=== PATIENT | female | born 1970 | race Caucasian/White ===

== ENCOUNTER 2019-05-22 15:01 | Inpatient (IN) | payer BC ==
[2019-05-15 12:05] LABS: Basophils # (auto) 0.1 uL; Basophils % (auto) 0.6 % (0.0-2.0); Eosinophils # (auto) 0.1 uL; Eosinophils % (auto) 1.4 % (0.0-7.0); Hematocrit 45.6 % (36.0-46.0); Hemoglobin 15.4 g/dL (12.2-16.2); Lymphocytes % (auto) 19.9 % (10.0-50.0); Mean Corpuscular Hemoglobin 32.2 pg (28.0-32.0); Mean Corpuscular Hgb Conc. 33.8 g/dL (32.0-36.0); Mean Corpuscular Volume 95.3 fL (80.0-100.0); Monocytes # (auto) 0.3 uL; Monocytes % (auto) 3.2 % (0.0-12.0); Neutrophils # (auto) 7.4 uL; Neutrophils % (auto) 74.9 % (37.0-80.0); Nucleated Red Blood Cells % 0.1 %; Platelet Count (auto) 292 10^3/uL (140-450); Red Blood Cells 4.78 10^6/uL (4.0-5.20); Red Cell Distribution Width 14.6 % (11.8-14.3); Urine Bacteria NONE SEEN /hpf (None Seen); Urine Blood Negative /uL (Negative); Urine Mucus FEW (None Seen); Urine WBC 2 /hpf (0 - 5); White Blood Cell 9.9 10^3/uL (4.4-10.8)
[2019-05-15 12:13] LABS: INR 0.94 (0.9-1.15); Partial Thromboplastin Time 26.3 sec (23.64-32.05)
[2019-05-15 12:15] LABS: Albumin 3.9 g/dL (3.4-5.0); Calcium 9.1 mg/dL (8.5-10.1); Potassium 3.5 mmol/L (3.5-5.1)
[2019-05-15 12:18] LABS: BUN/Creatinine Ratio 18.7; Bilirubin, Total 0.5 mg/dL (0.2-1.0); Total Protein 7.7 g/dL (6.4-8.2)
[~2019-05-22] VITALS: Ht 165.1 cm; Wt 98.4 kg
[2019-05-22] MEDS: SODIUM CHLORIDE 0.9% 1,000 ML IV SCH ×2 (14:53→23:52)
[~2019-05-22 15:01] MED LIST: ACETAMINOPHEN 500 MG TAB PO PRN; ALBUAER3 IN; CHOL200021 PO; CYAN1TAB14 PO; ESTR0.1C VA; HYDR25TA4 PO; LISI-646 PO; MULT1CHW PO; ONDANSETRON HCL 4 MG/2 ML VIAL IV PRN; PRAV20TA3 PO; ceFAZolin 1GM/50ML 50 ML IV ONE
[2019-05-22] MEDS ORDERED: MIDAZOLAM HCL 1MG/1ML-2 ML VIAL ONE (16:16)
[2019-05-22] MEDS ORDERED: MEPERIDINE HCL (25 MG/ML) 1ML VIAL ONE (16:16)
[2019-05-22] MEDS ORDERED: ROCURONIUM 10MG/ML 10ML VIAL IV ONE (16:16)
[2019-05-22] MEDS ORDERED: fentaNYL CITRATE 100 MCG/2 ML VL ONE ×3 (16:16→21:41)
[2019-05-22] MEDS ORDERED: fentaNYL CITRATE 5 ML ONE (16:16)
[2019-05-22] MEDS ORDERED: SODIUM CHLORIDE LOCK 20 ML ONE (16:16)
[2019-05-22] MEDS ORDERED: ONDANSETRON HCL 4 MG/2 ML VIAL ONE (16:16)
[2019-05-22] MEDS ORDERED: METOCLOPRAMIDE HCL 5MG/ml INJ 2ml VIAL IV ONE (16:30)
[2019-05-22] MEDS ORDERED: ceFAZolin 1GM/50ML 100 ML IV ONE (18:01)
[2019-05-22] MEDS ORDERED: METHYLENE BLUE 0.5% 5MG/ML 10ml AMP IV ONE (18:37)
[2019-05-22] MEDS ORDERED: BUPIVACAINE W/ EPINEPH 0.25% INJ 50ML MDV ONE (18:37)
[2019-05-22] MEDS ORDERED: LIDOCAINE 2% (LOCAL ANESTH.) PF 5ml SDV ONE (19:16)
[2019-05-22] MEDS ORDERED: LIDOCAINE HCL 2% TOP JELLY 5ML TOP ONE (19:16)
[2019-05-22] MEDS ORDERED: SUCCINYLCHOLINE CHLORIDE 20 MG/ML 10ML VIAL IV ONE (19:21)
[2019-05-22] MEDS ORDERED: PROPOFOL 10 MG/ML 20 ML IV ONE (19:21)
[2019-05-22] MEDS ORDERED: NITROGLYCERIN 0.4 MG SL TAB SL PRN (22:15)
[2019-05-22] MEDS ORDERED: MORPHINE SULF INJ 2 MG/ML SYRINGE 1ML IV PRN (22:15)
[2019-05-22] MEDS ORDERED: HYDROmorphone HCL 2 MG/ML VL ONE (22:21)
[2019-05-22] MEDS: HYDROmorphone HCL 2 MG/ML VL IV PRN ×2 (22:50→23:05)
[2019-05-22 23:30] VITALS: BP 102/66
--- NOTE | 2019-05-22 23:30 | NUR ---
RECEIVED PT FROM OR NURSE POC REVIEWED, PT ORIENTED TO RM [id number] CALL LIGHT WITHIN REACH, SCD'S INTACT ALL QUESTIONS AND CONCERNS ADDRESSED, ABD INCISIONS DRY AND INTACT POSITIONED WITH HOB UP, V/S 97.6, 102/66, HR 85, RR 20, 97% ON 2L.
--- NOTE | 2019-05-23 01:01 | NUR ---
AWOKE NO C/O PAIN OR DISCOMFORT
[2019-05-23] MEDS: MORPHINE SULFATE 4 MG/ML SYR/VIAL IV PRN ×3 (03:53→14:01)
[2019-05-23 05:29] VITALS: BP 113/69
[2019-05-23] MEDS: SODIUM CHLORIDE 0.9% 1,000 ML IV SCH ×2 (05:30→14:53)
[2019-05-23 06:21] LABS: Basophils # (auto) 0 uL; Basophils % (auto) 0.2 % (0.0-2.0); Eosinophils # (auto) 0 uL; Hemoglobin 12.8 g/dL (12.2-16.2); Lymphocytes # (auto) 0.5 uL; Lymphocytes % (auto) 4.3 % (10.0-50.0); Mean Corpuscular Hemoglobin 32.2 pg (28.0-32.0); Mean Corpuscular Hgb Conc. 33.6 g/dL (32.0-36.0); Mean Corpuscular Volume 95.7 fL (80.0-100.0); Monocytes # (auto) 0.2 uL; Monocytes % (auto) 1.4 % (0.0-12.0); Neutrophils # (auto) 11.3 uL; Neutrophils % (auto) 94.1 % (37.0-80.0); Platelet Count (auto) 249 10^3/uL (140-450); Red Blood Cells 3.97 10^6/uL (4.0-5.20); Red Cell Distribution Width 14.2 % (11.8-14.3)
--- NOTE | 2019-05-23 06:39 | NUR ---
CALLED OR SPOKE WITH LEONARD VERA CONCERNING PTS CLOTHING SHE STATED THAT SHE THINKS THAT THE PTS TOOK THEM HOME B;UT THAT SHE WILL SPEAK TO AISHA THE CIRCULATING NURSE FOR THE PTS OR LAST NIGHT
--- NOTE | 2019-05-23 07:30 | NUR ---
Opening Note Received report from shift engineer RN. Patient is awake, alert and oriented x4. No signs or symptoms of distress noted at this time. Patient complains of abdominal pain 8/, will medicate per orders. Patient is on 2L NC, respirations even and unlabored, denies shortness of breath at this time. Patient has a Watkins catheter in place, patent and draining. Reviewed plan of care with patient, patient verbalized understanding. Bed in low and locked position,call light within reach. Will continue to monitor Q1 hour and PRN.
[2019-05-23 08:00] VITALS: BP 113/76
--- NOTE | 2019-05-23 10:50 | NUR ---
IV REMOVED IV catheter removed with clean sterile technique, catheter fully intact. Pressure dressing applied to site. Patient tolerated well.
--- NOTE | 2019-05-23 11:49 | NUR ---
Spoke with Dr. Riley Spoke with Dr. Riley regrading patients Watkins catheter. States to remove the Watkins catheter before discharge. Will implement new orders.
--- NOTE | 2019-05-23 11:55 | NUR ---
Watkins catheter removed Watkins catheter removed with clean technique following deflation of balloon. Patient tolerated well with no complaints of pain. Patient instructed to notify this RN after first void. Will continue to monitor Q1 hour and PRN.
[2019-05-23 12:32] VITALS: BP 109/62
[2019-05-23 13:51] VITALS: BP 109/62
--- NOTE | 2019-05-23 15:25 | NUR ---
DISCHARGE Discharge instructions given as ordered. Encourage to follow up with primary care physician as instructed. All questions and concerns addressed. Patient verbalized understanding. IV catheter removed, catheter intact. Patient taken down to personal vehicle via wheelchair, accompanied by staff member and family member. Patient has all personal belongings. No signs or symptoms of distress noted at this time.
== END 2019-05-23 15:25 | disposition home or self-care (01) | DRG 747 ==
LOC: SUR 15:01 → WEST WING 23:11
PROVIDERS: ADMIT Obstetrics & Gynecology; ATTEND Obstetrics & Gynecology
PROC: 0UUF4JZ Supplement Cul-de-sac with Synthetic Substitute, Percutaneous Endoscopic Approach (ICD-10-PCS; 2019-05-22)
PROC: 8E0W4CZ Robotic Assisted Procedure of Trunk Region, Percutaneous Endoscopic Approach (ICD-10-PCS; 2019-05-22)
PROC: 0DBW4ZX Excision of Peritoneum, Percutaneous Endoscopic Approach, Diagnostic (ICD-10-PCS; 2019-05-22)
PROC: 0USG4ZZ Reposition Vagina, Percutaneous Endoscopic Approach (ICD-10-PCS; principal; 2019-05-22 19:21)
DX: N81.10 Cystocele, unspecified (principal); N73.6 Female pelvic peritoneal adhesions (postinfective); F17.210 Nicotine dependence, cigarettes, uncomplicated; Z90.710 Acquired absence of both cervix and uterus; Z80.9 Family history of malignant neoplasm, unspecified; Z72.89 Other problems related to lifestyle
CPT/HCPCS: 36415; 80053; 81001; 85025; 85610; 85730; 86850; 86900; 86901; 87086; C1713; G0378; J0330; J0690; J2001; J2250; J2405; J2704